=== PATIENT | female | born 1990 | race Caucasian/White ===

== ENCOUNTER 2019-12-17 09:30 | Emergency (ER) | payer MEDICAID ==
[~2019-12-17] VITALS: Ht 147.3 cm; Wt 89.8 kg
[2019-12-17 09:33] VITALS: BP 119/69
[2019-12-20] MEDS ORDERED: PNV1TABL76 PO (02:09)
== END 2019-12-17 10:20 | disposition home or self-care (01) ==
LOC: ER 09:30
DX: Z03.818 Encounter for observation for suspected exposure to other biological agents ruled out (principal); Z98.890 Other specified postprocedural states
CPT/HCPCS: 87426; 99283